=== PATIENT | male | born 1975 | race Caucasian/White ===

== ENCOUNTER 2019-07-23 11:32 | Emergency (ER) | payer OTHER ==
[~2019-07-23] VITALS: Ht 180.3 cm; Wt 106.8 kg
[2019-07-23 12:04] VITALS: BP 125/80
== END 2019-07-23 13:55 | disposition home or self-care (01) ==
LOC: ER 11:33
DX: S01.01XA Laceration without foreign body of scalp, initial encounter (principal); W22.8XXA Striking against or struck by other objects, initial encounter; Y93.89 Activity, other specified; Y92.89 Other specified places as the place of occurrence of the external cause; Y99.8 Other external cause status
CPT/HCPCS: 12002; 99283